=== PATIENT | male | born 1975 | race Caucasian/White ===

== ENCOUNTER 2023-01-29 09:03 | Outpatient (CLI) | payer OTHER, SELFPAY | END 2023-01-29 09:04 | disposition home or self-care (01) | PROVIDERS: PCP Family Medicine; Visit Provider Family Medicine | DX: Z00.00 Encounter for general adult medical examination without abnormal findings (principal); I10 Essential (primary) hypertension; E78.5 Hyperlipidemia, unspecified; Z12.5 Encounter for screening for malignant neoplasm of prostate | CPT/HCPCS: 80053; 80061; 84153 ==

== ENCOUNTER 2025-03-27 08:08 | Outpatient (CLI) | payer OTHER, SELFPAY | END 2025-03-27 08:09 | disposition home or self-care (01) | LOC: NFLDREF 15:09 | PROVIDERS: PCP Family Medicine; Referring Provider Family Medicine; Visit Provider Family Medicine | DX: Z00.00 Encounter for general adult medical examination without abnormal findings (principal); E78.5 Hyperlipidemia, unspecified; I10 Essential (primary) hypertension | CPT/HCPCS: 80048; 80061; 84153; 84270; 84402; 84403 ==

== ENCOUNTER 2025-03-29 13:03 | Outpatient (CLI) | payer OTHER, SELFPAY | END 2025-03-29 13:04 | disposition home or self-care (01) | LOC: LKVREF 13:07 | PROVIDERS: PCP Family Medicine; Visit Provider Family Medicine | DX: Z00.00 Encounter for general adult medical examination without abnormal findings (principal); I10 Essential (primary) hypertension; E11.9 Type 2 diabetes mellitus without complications | CPT/HCPCS: 82043; 82570 ==